=== PATIENT | female | born 1980 | race Caucasian/White ===

== ENCOUNTER 2016-08-21 14:06 | Emergency (ER) | payer BC ==
[2016-08-21 14:13] VITALS: BP 141/74
--- NOTE | 2016-08-21 15:22 | RAD ---
Indication: Left index finger injury at the proximal interphalangeal joint. 3 views of left index finger demonstrates suggestion of an avulsion of the volar plate of the middle phalanx of the index finger. Distal interphalangeal joint is unremarkable. IMPRESSION: Suggestion of a volar plate fracture proximal end middle phalanx of the index finger.
--- NOTE | 2016-08-21 15:27 | UC ---
Hand/Wrist HPI - HPI Summary HPI Summary: INJURED LEFT INDEX FINGER YESTERDAY WHILE PLAYING FOOTBALL. HAS TENDERNESS, BRUISING AND SWELLING. NO NUMBNESS. - History Of Current Complaint Chief Complaint: UCUpperExtremity Stated Complaint: HAND INJURY Time Seen by Provider: 08/21/16 15:18 Hx Obtained From: Patient Hx Last Menstrual Period: 08/11/16 Onset/Duration: Sudden Onset, Lasting Hours, Still Present Severity Initially: Moderate Severity Currently: Moderate Pain Intensity: 6 Pain Scale Used: 0-10 Numeric Character Of Pain: Aching, Throbbing Aggravating Factor(s): Movement, Flexion Alleviating: Rest, Elevation Associated Signs And Symptoms: Positive: Swelling, Bruising Related History: Dominant Hand Right - Allergies/Home Medications Allergies/Adverse Reactions: Allergies Allergy/AdvReac Type Severity Reaction Status Date / Time No Known Allergies Allergy Verified 08/21/16 14:11 Home Medications: Home Medications Ibuprofen [Ibuprofen 200 MG] 200 mg PO Q6H PRN 08/21/16 [History Confirmed 08/21] PMH/Surg Hx/FS Hx/Imm Hx Endocrine History: Thyroid Disease - BORDERLINE - MONITORING. NO MEDS, Dyslipidemia - Surgical History Surgical History: Yes Surgery Procedure, Year, and Place: 1999 & 2002 - Family History Known Family History: Positive: Hypertension - Social History Alcohol Use: Occasionally Substance Use Type: None Smoking Status (MU): Never Smoked Tobacco Review of Systems Constitutional: Negative Skin: Bruising Respiratory: Negative Cardiovascular: Negative Gastrointestinal: Negative Musculoskeletal: Arthralgia, Decreased ROM, Edema All Other Systems Reviewed And Are Negative: Yes Physical Exam Triage Information Reviewed: Yes Appearance: Well-Appearing, No Pain Distress, Well-Nourished Vital Signs: Initial Vital Signs Temp 97.5 F 08/21/16 14:13 Pulse 79 08/21/16 14:13 Resp 16 08/21/16 14:13 BP 141/74 08/21/16 14:13 Pulse Ox 99 08/21/16 14:13 Vital Signs Reviewed: Yes Eyes: Positive: Conjunctiva Clear ENT: Positive: Hearing grossly normal Neck: Positive: Supple Respiratory: Positive: No respiratory distress, No accessory muscle use Cardiovascular: Positive: Pulses Normal Abdomen Description: Positive: Soft Musculoskeletal: Positive: ROM Limited @ - LEFT INDEX FINGER, Edema @ - LEFT INDEX FINGER, Other: - TO LEFT INDEX FINGER MOSTLY OVER PIP JOINT Neurological: Positive: Alert Skin: Positive: Other - BRUISING LEFT INDEX FINGER Diagnostics - Radiology LEFT INDEX FINGER XRAY Xray Interpretation: Positive (See Comments) - Suggestion of a volar plate fracture proximal end middle phalanx of the index finger. Radiology Interpretation Completed By: Radiologist Hand/Wrist Course/Dx - Differential Dx/Diagnosis Provider Diagnoses: LEFT INDEX FINGER AVULSION FRACTURE Discharge - Discharge Plan Condition: Stable Disposition: HOME Patient Education Materials: Avulsion Fracture (ED) Referrals: Arleth Parada MD [Medical Doctor] - Kong Taveras MD [Medical Doctor] - 1 Week
== END 2016-08-21 15:37 | disposition home or self-care (01) ==
LOC: UCEAST 14:06
DX: S62.621A Displaced fracture of middle phalanx of left index finger, initial encounter for closed fracture (principal); Y93.61 Activity, american tackle football; Y92.9 Unspecified place or not applicable; Y99.9 Unspecified external cause status
CPT/HCPCS: 73140; 99213; G0463

== ENCOUNTER 2017-01-11 15:01 | Emergency (ER) | payer BC ==
--- NOTE | 2017-01-11 15:22 | UC ---
Respiratory Complaint HPI - HPI Summary HPI Summary: 37 year old female presents with complains of flu like symptoms. - History of Current Complaint Stated Complaint: FLU-LIKE SYMPTOMS Time Seen by Provider: 01/11/17 15:22 Hx Obtained From: Patient Hx Last Menstrual Period: 08/11/16 Onset/Duration: Sudden Onset Severity Initially: Moderate Severity Currently: Moderate - Allergies/Home Medications Allergies/Adverse Reactions: Allergies Allergy/AdvReac Type Severity Reaction Status Date / Time No Known Allergies Allergy Verified 01/11/17 15:26 Home Medications: Home Medications Diphenhydramine HCl [Benadryl Allergy 25 MG CAP] 25 mg PO PRN 01/11/17 [History] PMH/Surg Hx/FS Hx/Imm Hx - Surgical History Surgical History: Yes Surgery Procedure, Year, and Place: 1999 & 2002 - Family History Known Family History: Positive: Hypertension - Social History Alcohol Use: Occasionally Substance Use Type: None Smoking Status (MU): Never Smoked Tobacco Review of Systems Constitutional: Negative Skin: Negative Eyes: Negative ENT: Sore Throat, Nasal Discharge, Sinus Congestion, Sinus Pain/Tenderness Respiratory: Negative Cardiovascular: Negative Gastrointestinal: Negative Genitourinary: Negative Motor: Negative Neurovascular: Negative Musculoskeletal: Negative Neurological: Negative Psychological: Negative All Other Systems Reviewed And Are Negative: Yes Physical Exam Triage Information Reviewed: Yes Vital Signs Reviewed: Yes Eye Exam: Normal ENT: Positive: Pharyngeal erythema, Nasal congestion, Nasal drainage Dental Exam: Normal Neck exam: Normal Neck: Positive: 1 Respiratory Exam: Normal Cardiovascular Exam: Normal Abdominal Exam: Normal Musculoskeletal Exam: Normal Neurological Exam: Normal Psychological Exam: Normal Skin Exam: Normal Respiratory Course/Dx - Differential Dx/Diagnosis Provider Diagnoses: fever. chills Discharge - Discharge Plan Condition: Stable Disposition: HOME Referrals: Arleth Parada MD [Primary Care Provider] -
[2017-01-11 15:26] VITALS: BP 154/77
== END 2017-01-11 16:03 | disposition home or self-care (01) ==
LOC: UCEAST 15:01
DX: R50.9 Fever, unspecified (principal)
CPT/HCPCS: 87502; 99212; G0463

== ENCOUNTER 2017-12-06 18:21 | Emergency (ER) | payer BC, OTHER ==
[2017-12-06 21:57] VITALS: BP 131/82
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
== END 2017-12-06 21:56 | disposition home or self-care (01) ==
LOC: ED 18:21
DX: V43.52XA Car driver injured in collision with other type car in traffic accident, initial encounter (principal); Y92.410 Unspecified street and highway as the place of occurrence of the external cause
CPT/HCPCS: 71046; 99282

== ENCOUNTER 2018-09-05 15:40 | Emergency (ER) | payer SELFPAY ==
[2018-09-05 15:57] VITALS: BP 149/100
--- NOTE | 2018-09-05 16:36 | UC ---
Dental HPI - HPI Summary HPI Summary: Pt presents with c/o dental abscess right upper tooth # 14. Pt states she has had an abscess on and off in this same tooth over the last two years. She no longer has dental insurance and has not been able to see a dentist. She has broken this tooth 2 years ago and has been able to "squeeze pus out of it before but not the pain and swelling is worse than ever". - History of Current Complaint Chief Complaint: UCDentalProblem Stated Complaint: TOOTH ACHE Time Seen by Provider: 09/05/18 16:32 Hx Obtained From: Patient Hx Last Menstrual Period: [id number] ?: No Onset/Duration: Gradual Onset Severity: Severe Pain Intensity: 9 Aggravating Factor(s): Heat, Cold, Chewing Related History: Discharge, Swelling - Allergies/Home Medications Allergies/Adverse Reactions: Allergies Allergy/AdvReac Type Severity Reaction Status Date / Time No Known Allergies Allergy Verified 09/05/18 15:57 Home Medications: Home Medications Ibuprofen TAB* [Motrin TAB* 800 MG] 600 mg PO Q4H 09/05/18 [History Confirmed ] PMH/Surg Hx/FS Hx/Imm Hx Previously Healthy: Yes - Surgical History Surgical History: Yes Surgery Procedure, Year, and Place: 1999 & 2002 - Family History Known Family History: Positive: Hypertension - Social History Occupation: Unemployed Lives: With Family Alcohol Use: Weekly Substance Use Type: None Smoking Status (MU): Never Smoked Tobacco Have You Smoked in the Last Year: No Review of Systems All Other Systems Reviewed And Are Negative: Yes Constitutional: Positive: Negative Skin: Positive: Negative Eyes: Positive: Negative ENT: Positive: Dental Pain Respiratory: Positive: Negative Cardiovascular: Positive: Negative Gastrointestinal: Positive: Negative Genitourinary: Positive: Negative Motor: Positive: Negative Neurovascular: Positive: Negative Musculoskeletal: Positive: Negative Neurological: Positive: Negative Psychological: Positive: Negative Is Patient Immunocompromised?: No Physical Exam Triage Information Reviewed: Yes Appearance: Ill-Appearing, Pain Distress Vital Signs: Initial Vital Signs Temp 98.7 F 09/05/18 15:53 Pulse 100 09/05/18 15:53 Resp 16 09/05/18 15:53 BP 149/100 09/05/18 15:53 Pulse Ox 99 09/05/18 15:53 Vital Signs Reviewed: Yes Eye Exam: Normal ENT Exam: Normal Dental: Positive: Gross Decay/Caries @ - #14, Dental Fracture @ - #14, Abscess @ - #14 Neck exam: Normal Respiratory Exam: Normal Cardiovascular Exam: Normal Musculoskeletal Exam: Normal Neurological Exam: Normal Psychological Exam: Normal Skin Exam: Normal Dental Complaint Course/Dx - Differential Dx/Diagnosis Differential Diagnosis/Dx: Dental Abscess, Dental Caries, Fractured Tooth Provider Diagnosis: Dental abscess Discharge - Sign-Out/Discharge Documenting (check all that apply): Patient Departure All imaging exams completed and their final reports reviewed: No Studies - Discharge Plan Condition: Stable Disposition: HOME Prescriptions: Amoxicillin PO (*) [Amoxicillin 875 MG (*)] 875 mg PO Q12H #20 tab Lidocaine 2% VISCOUS* [Xylocaine 2% Viscous*] 15 ml SWISH SPIT Q4H PRN #1 btl PRN Reason: Pain Patient Education Materials: Dental Abscess (ED) Referrals: [facility] [place] PHYSICIAN REFERRAL [Outside] Arleth Parada MD [Primary Care Provider] - Additional Instructions: Please follow up with your dental care provider as scheduled. - Billing Disposition and Condition Condition: STABLE Disposition: Home
== END 2018-09-05 16:50 | disposition home or self-care (01) ==
LOC: UCEAST 15:40
DX: K04.7 Periapical abscess without sinus (principal)
CPT/HCPCS: 99212; G0463